=== PATIENT | male | born 1945 | race African-American/Black ===

== ENCOUNTER 2017-10-06 08:47 | Day surgery (SDC) | payer OTHER ==
[~2017-10-06 08:47] MED LIST: FENTANYL INJ 100 mcg ONE; VERSED ONE
[2017-10-06] MEDS ORDERED: TETRACAINE 0.5% OPHTH 1 DOSE AFFEYE ONE ×3 (09:00→11:13)
[2017-10-06] MEDS ORDERED: VIGAMOX 0.5% OPHTH 1 DOSE AFFEYE ONE ×5 (09:05→11:42)
[2017-10-06] MEDS ORDERED: NS 500 ML IV 500 ML IV ONE (09:09)
[2017-10-06] MEDS ORDERED: PROLENSA OPHTH 1 DOSE AFFEYE ONE (09:16)
[2017-10-06] MEDS ORDERED: ALPHAGAN-P OPHTH 1 DOSE AFFEYE ONE (09:17)
[2017-10-06] MEDS ORDERED: CYCLOGYL 1% OPHTH 1 DOSE OP ONE ×3 (09:18→09:20)
[2017-10-06] MEDS ORDERED: AK-DILATE 2.5% OPHTH 1 DOSE OP ONE ×3 (09:18→09:20)
[2017-10-06] MEDS ORDERED: MYDRIACIL OPHTH 1 DOSE AFFEYE ONE ×3 (09:18→09:20)
[2017-10-06] MEDS ORDERED: VERSED IVP ONE ×2 (11:00→11:11)
[2017-10-06] MEDS ORDERED: AK-DILATE 10% OPHTH 1 DOSE AFFEYE ONE (11:15)
[2017-10-06] MEDS ORDERED: DUOVISC IO ONE (11:33)
[2017-10-06] MEDS ORDERED: BSS OPHTH (PLAIN) 500 ML with VANCOMYCIN HCL 500 MG VIAL 25 MG, ADRENALINE CHL INJ 1 MG IR ONE ×3 (11:33)
[2017-10-06] MEDS ORDERED: ADRENALINE CHL INJ IJ ONE (11:33)
[2017-10-06] MEDS ORDERED: BETADINE OPHTH SOLN 5% EACHEYE ONE (11:33)
[2017-10-06] MEDS ORDERED: XYLOCAINE-MPF 1% IJ ONE (11:33)
[2017-10-06 12:15] VITALS: BP 125/72
== END 2017-10-06 12:05 | disposition home or self-care (01) ==
LOC: SURG1 08:47
PROVIDERS: ATTEND Ophthalmology
PROC: 08RK3JZ Replacement of Left Lens with Synthetic Substitute, Percutaneous Approach (ICD-10-PCS; principal; 2017-10-06 12:45)
PROC: 08DK3ZZ Extraction of Left Lens, Percutaneous Approach (ICD-10-PCS; principal; 2017-10-06 12:45)
DX: H25.12 Age-related nuclear cataract, left eye (principal); H25.012 Cortical age-related cataract, left eye; H52.222 Regular astigmatism, left eye
CPT/HCPCS: A4217; J0170; J2250; J3010; J3370

== ENCOUNTER 2017-12-08 07:22 | Day surgery (SDC) | payer OTHER ==
[2017-12-08] MEDS ORDERED: VERSED ONE ×2 (08:02→09:40)
[2017-12-08] MEDS ORDERED: NS 500 ML IV 500 ML IV ONE (08:24)
[2017-12-08] MEDS ORDERED: TETRACAINE 0.5% OPHTH 1 DOSE AFFEYE ONE ×7 (08:30→10:08)
[2017-12-08] MEDS ORDERED: VIGAMOX 0.5% OPHTH 1 DOSE AFFEYE ONE ×5 (08:35→10:18)
[2017-12-08] MEDS ORDERED: PROLENSA OPHTH 1 DOSE AFFEYE ONE (08:46)
[2017-12-08] MEDS ORDERED: ALPHAGAN-P OPHTH 1 DOSE AFFEYE ONE (08:47)
[2017-12-08] MEDS ORDERED: AK-DILATE 2.5% OPHTH 1 DOSE OP ONE ×3 (08:48→08:50)
[2017-12-08] MEDS ORDERED: MYDRIACIL OPHTH 1 DOSE AFFEYE ONE ×3 (08:48→08:50)
[2017-12-08] MEDS ORDERED: CYCLOGYL 1% OPHTH 1 DOSE OP ONE ×3 (08:48→08:50)
[2017-12-08] MEDS ORDERED: AK-DILATE 10% OPHTH 1 DOSE AFFEYE ONE (09:09)
[2017-12-08] MEDS ORDERED: VERSED IVP ONE ×2 (09:09→09:28)
[2017-12-08] MEDS ORDERED: BETADINE OPHTH SOLN 5% EACHEYE ONE (09:47)
[2017-12-08] MEDS ORDERED: ADRENALINE CHL INJ IJ ONE ×2 (09:48→10:08)
[2017-12-08] MEDS ORDERED: DUOVISC IO ONE ×2 (09:48→10:08)
[2017-12-08] MEDS ORDERED: XYLOCAINE-MPF 1% IJ ONE ×2 (09:48→10:08)
[2017-12-08] MEDS ORDERED: BSS OPHTH (PLAIN) 500 ML with VANCOMYCIN HCL 500 MG VIAL 25 MG, ADRENALINE CHL INJ 1 MG IR ONE ×6 (09:52)
[2017-12-08 10:58] VITALS: BP 120/75
== END 2017-12-08 10:40 | disposition home or self-care (01) ==
LOC: SURG1 07:22
PROVIDERS: ATTEND Ophthalmology
PROC: 08RJ3JZ Replacement of Right Lens with Synthetic Substitute, Percutaneous Approach (ICD-10-PCS; principal; 2017-12-08 08:15)
PROC: 08DJ3ZZ Extraction of Right Lens, Percutaneous Approach (ICD-10-PCS; principal; 2017-12-08 08:15)
DX: H25.11 Age-related nuclear cataract, right eye (principal); H25.011 Cortical age-related cataract, right eye; H52.221 Regular astigmatism, right eye
CPT/HCPCS: 99100; A4217; J0170; J2250; J3370